=== PATIENT | female | born 1995 | race Caucasian/White ===

== ENCOUNTER 2016-05-17 07:52 | Emergency (ER) | payer MEDICAID ==
[2016-05-17] MEDS ORDERED: ONDANSETRON ODT 4 MG TABLET TL STA (08:16)
[2016-05-17] MEDS ORDERED: KETOROLAC 60 MG/2 ML VIAL IM STA (08:16)
[2016-05-17] MEDS ORDERED: ONDANSETRON ODT 4 MG TABLET ONE (08:20)
[2016-05-17] MEDS ORDERED: KETOROLAC 60 MG/2 ML VIAL ONE (08:20)
[2016-05-17] MEDS ORDERED: LISINOPRIL 5 MG TABLET PO STA (09:20)
[2016-05-17] MEDS ORDERED: BUTALB/ACETAM/CAFF 50/325/40MG TABLET PO STA (09:21)
[2016-05-17] MEDS ORDERED: LISINOPRIL 5 MG TABLET ONE (09:22)
== END 2016-05-17 10:04 | disposition home or self-care (01) ==
DX: G43.909 Migraine, unspecified, not intractable, without status migrainosus (principal); R51 Headache; G89.29 Other chronic pain; I10 Essential (primary) hypertension
CPT/HCPCS: 96372; 99283; A9270; Q0162

== ENCOUNTER 2016-05-21 10:18 | Outpatient (CLI) | payer MEDICAID | END 2016-05-21 10:19 | disposition home or self-care (01) | DX: E28.2 Polycystic ovarian syndrome (principal); E88.81 Metabolic syndrome and other insulin resistance; I10 Essential (primary) hypertension; G43.909 Migraine, unspecified, not intractable, without status migrainosus ==

== ENCOUNTER 2016-05-29 11:43 | Outpatient (CLI) | payer MEDICAID | END 2016-05-29 11:44 | disposition home or self-care (01) | DX: R94.5 Abnormal results of liver function studies (principal) ==

== ENCOUNTER 2016-06-04 11:23 | Outpatient (CLI) | payer OTHER, MEDICAID | END 2016-06-04 11:24 | disposition home or self-care (01) | DX: K76.0 Fatty (change of) liver, not elsewhere classified (principal) ==

== ENCOUNTER 2016-07-03 12:35 | Outpatient (CLI) | payer OTHER, MEDICAID | END 2016-07-03 12:36 | disposition home or self-care (01) | DX: Z71.3 Dietary counseling and surveillance (principal); E88.81 Metabolic syndrome and other insulin resistance; R94.5 Abnormal results of liver function studies; E28.2 Polycystic ovarian syndrome; K76.0 Fatty (change of) liver, not elsewhere classified; Z68.35 Body mass index [BMI] 35.0-35.9, adult ==

== ENCOUNTER 2016-08-09 10:10 | Outpatient (CLI) | payer OTHER, MEDICAID | END 2016-08-09 23:59 | disposition home or self-care (01) | DX: I10 Essential (primary) hypertension (principal); M13.0 Polyarthritis, unspecified; E78.1 Pure hyperglyceridemia ==

== ENCOUNTER 2016-09-22 14:59 | Emergency (ER) | payer OTHER, MEDICAID ==
[2016-09-22 15:23] LABS: BASOPHILS # (AUTO) 0.1 10^3/uL (0.0-0.1); BASOPHILS % (AUTO) 0.5 %; EOSINOPHILS # (AUTO) 0.2 10^3/uL (0.0-0.7); EOSINOPHILS % (AUTO) 1.8 %; HCT - HEMATOCRIT 45.7 % (37.0-47.0); HGB - HEMOGLOBIN 15.6 g/dL (12.0-16.0); LYMPHOCYTES # (AUTO) 3.8 10^3/uL (1.5-3.5); LYMPHOCYTES % (AUTO) 38.4 %; MEAN CORPUSCULAR HGB CONC 34.1 g/dL (32.0-36.0); MEAN CORPUSCULAR VOLUME 90.9 fL (81.0-99.0); MEAN PLATELET VOLUME 7.9 fL (7.9-10.8); MONOCYTES # (AUTO) 0.6 10^3/uL (0.0-1.0); MONOCYTES % (AUTO) 5.8 %; NEUTROPHILS # (AUTO) 5.2 10^3/uL (1.5-6.6); NEUTROPHILS % (AUTO) 53.5 %; RED BLOOD COUNT 5.03 10^6/uL (4.20-5.40); RED CELL DISTRIBUTION WIDTH 12.4 % (12.0-15.0); UNCORRECTED WHITE BLOOD COUNT 9.8 x10^3/uL; WHITE BLOOD COUNT 9.8 x10^3/uL (4.8-10.8)
[2016-09-22 15:36] LABS: ALBUMIN/GLOBULIN RATIO 1.3 (1.0-2.2); BILIRUBIN,TOTAL 0.7 mg/dL (0.2-1.0); CALCIUM 9.6 mg/dL (8.5-10.3); CREATININE 0.8 mg/dL (0.4-1.0); POTASSIUM 4.2 mmol/L (3.5-5.0); TOTAL PROTEIN 7.5 g/dL (6.7-8.2)
[2016-09-22 15:40] LABS: PT - PROTHROMBIN TIME 11.2 secs (9.9-12.6)
[2016-09-22 15:48] LABS: PARTIAL THROMBOPLASTIN TIME 25.4 secs (24.9-33.3)
[2016-09-22] MEDS ORDERED: HYOSCYAMINE SL 0.125 MG TABLET SL STA (15:53)
--- NOTE | 2016-09-22 15:57 | ED Physician Documentation ---
PD HPI GI BLEED - Stated complaint Stated Complaint: FEMALE - Chief complaint Chief Complaint: Abd Pain - History obtained from History obtained from: Patient - History of Present Illness Timing - onset: Other (several months) Timing - duration: Months Timing - details: Waxing and waning Pain level max: 6 Pain level now: 4 Associated symptoms: Diarrhea. No: Vomiting, Coffee ground emesis, Hematemesis Contributing factors: No: Sick contact, Bad food, Travel, Recent antibiotics, Alcohol use, Aspirin use, NSAID use, Stress, Anticoagulated, Diabetes Improved by: Other (nothing) Worsened by: Other (nothing) - Additional information Additional information: Patient is a 21-year-old female presents to the emergency department with intermittent blood in the stool for the past several months. This comes and goes. Generally associated with diarrhea and abdominal cramping. No fevers. Has not seen her doctor for this. Sometimes the blood is bright, sometimes it is dark Review of Systems Constitutional: denies: Fever, Chills Respiratory: denies: Cough, Wheezing GI: denies: Nausea, Vomiting : denies: Dysuria, Now EGA Musculoskeletal: denies: Neck pain, Back pain Neurologic: denies: Focal weakness, Numbness, Headache PD PAST MEDICAL HISTORY - Past Medical History Past Medical History: Yes Cardiovascular: Hypertension Neuro: Headache/migraine Psych: Anxiety Other Past Medical History: fatty liver syndrome - Past Surgical History Past Surgical History: Yes HEENT: Tonsil/Adenoidectomy - Present Medications Home Medications: Ambulatory Orders Medication Instructions Recorded Confirmed Etonogestrel/Ethinyl Estradiol 1 each VG TITR 03/23/16 09/22/16 [Nuvaring Vaginal Ring] Biotin 1 tab DAILY 09/22/16 09/22/16 Clonazepam 1 mg BID 09/22/16 09/22/16 Dicyclomine [Bentyl] 10 mg PO QID PRN #30 capsule 09/22/16 Nadolol 20 mg QPM 09/22/16 09/22/16 PARoxetine [Paxil] 40 mg DAILY 09/22/16 09/22/16 - Allergies Allergies/Adverse Reactions: Allergies Allergy/AdvReac Type Severity Reaction Status Date / Time No Known Drug Allergies Allergy Verified 03/24/16 10:32 - Social History Does the pt smoke?: No Smoking Status: Never smoker Does the pt drink ETOH?: No Does the pt have substance abuse?: No - Immunizations Immunizations are current?: Yes PD ED PE NORMAL - Vitals Vital signs reviewed: Yes - General General: Alert and oriented X 3, No acute distress - HEENT HEENT: Moist mucous membranes - Neck Neck: Supple, no meningeal sign - Cardiac Cardiac: RRR, Strong equal pulses - Respiratory Respiratory: No respiratory distress, Clear bilaterally - Abdomen Abdomen: Soft, Other (Mild diffuse tenderness to palpation without peritoneal signs.) - Rectal Rectal: Other (normal rectal exam. hemoccult neg. QC passed. RN Ramona Jeffrey senior counsel) - Back Back: No CVA TTP, No spinal TTP - Derm Derm: Warm and dry, No rash - Extremities Extremities: No edema - Neuro Neuro: Alert and oriented X 3 - Psych Psych: Normal mood, Normal affect Results - Vitals Vitals: Vital Signs - 24 hr 09/22/16 09/22/16 15:02 16:48 Temperature 36.7 C 36.9 C Heart Rate 101 H 85 Respiratory 18 16 Rate Blood Pressure 150/103 H 139/56 H O2 Saturation 98 97 Oxygen O2 Source Room air - Labs Labs: Laboratory Tests 09/22/16 09/22/16 09/22/16 15:17 15:17 15:17 WBC 9.8 RBC 5.03 Hgb 15.6 Hct 45.7 MCV 90.9 MCH 31.0 MCHC 34.1 RDW 12.4 Plt Count 281 MPV 7.9 Neut # 5.2 Lymph # 3.8 H [place] # 0.6 Eos # 0.2 Baso # 0.1 Absolute Nucleated RBC 0.00 Nucleated RBCs 0.0 PT 11.2 INR 1.0 APTT 25.4 Sodium 140 Potassium 4.2 Chloride 107 Carbon Dioxide 25 Anion Gap 8.0 BUN 10 Creatinine 0.8 Estimated GFR (MDRD) 91 Glucose 85 Calcium 9.6 Total Bilirubin 0.7 AST 33 ALT 50 Alkaline Phosphatase 66 Total Protein 7.5 Albumin 4.2 Globulin 3.3 Albumin/Globulin Ratio 1.3 Lipase 30 Urine Color Urine Clarity Urine pH Ur Specific [place] Urine Protein Urine Glucose (UA) Urine Ketones Urine Occult Blood Urine Nitrite Urine Bilirubin Urine Urobilinogen Ur Leukocyte Esterase Ur Microscopic Review Urine Culture Comments Urine HCG, Qual 09/22/16 16:06 WBC RBC Hgb Hct MCV MCH MCHC RDW Plt Count MPV Neut # Lymph # [place] # Eos # Baso # Absolute Nucleated RBC Nucleated RBCs PT INR APTT Sodium Potassium Chloride Carbon Dioxide Anion Gap BUN Creatinine Estimated GFR (MDRD) Glucose Calcium Total Bilirubin AST ALT Alkaline Phosphatase Total Protein Albumin Globulin Albumin/Globulin Ratio Lipase Urine Color YELLOW Urine Clarity CLEAR Urine pH 6.0 Ur Specific [place] 1.025 Urine Protein NEGATIVE Urine Glucose (UA) NEGATIVE Urine Ketones TRACE Urine Occult Blood NEGATIVE Urine Nitrite NEGATIVE Urine Bilirubin NEGATIVE Urine Urobilinogen 0.2 (NORMAL) Ur Leukocyte Esterase NEGATIVE Ur Microscopic Review NOT INDICATED Urine Culture Comments NOT INDICATED Urine HCG, Qual NEGATIVE PD MEDICAL DECISION MAKING - ED course Complexity details: reviewed results, re-evaluated patient, considered differential, d/w patient ED course: Patient is a 21-year-old female who presents to the emergency department with several months of intermittent diarrhea, occasional blood in the stool. Pain improved with Levsin here. Will trial on Bentyl for home. Sounds as if she has inflammatory bowel disease versus irritable bowel syndrome. Recommend that she follow-up with her doctor for further evaluation and care. No active bleeding here. No anemia. Abdomen is soft, nontender nondistended on serial exam. No recent antibiotics. Only has 1-2 bowel movements per day. Patient counseled regarding signs and symptoms for which I believe and urgent re- evaluation would be necessary. Patient with good understanding of and agreement to plan and is comfortable going home at this time This document was made in part using voice recognition software. While efforts are made to proofread this document, sound alike and grammatical errors may occur. Departure - Departure Disposition: 01 Home, Self Care Clinical Impression: GI bleed Qualifiers: GI bleed type/associated pathology: unspecified gastrointestinal hemorrhage type Qualified Code(s): K92.2 - Gastrointestinal hemorrhage, unspecified Condition: Good Instructions: ED Hematochezia Stable Follow-Up: Anthony Emerson MD [Primary Care Provider] - Within 1 week Prescriptions: Dicyclomine [Bentyl] 10 mg PO QID PRN #30 capsule PRN Reason: Abdominal Pain Comments: You need to follow-up with Dr. Emerson for further evaluation and care. Your laboratory tests are normal today. You may be suffering from inflammatory bowel disease, such as ulcerative colitis or Crohn's. You may also be suffering from irritable bowel syndrome or another disorder causing the bleeding for the last several months. Return if you worsen. Your blood pressure was elevated today on check in to the emergency department. This does not mean that you have hypertension, it is a common phenomenon to check into the emergency department and have elevated blood pressure. I recommend that you see your primary care physician within the week to have it rechecked when you're feeling better. Discharge Date/Time: 09/22/16 16:51
[2016-09-22 16:18] LABS: BILIRUBIN,URINE NEGATIVE (NEGATIVE)
[2016-09-22 16:31] LABS: UA CHARGE (STRIP ONLY) YES; UR CULTURE IF IND NOT INDICATED
[2016-09-22 16:34] LABS: HCG UR QUAL NEGATIVE
[2016-09-22 16:49] VITALS: BP 139/56
== END 2016-09-22 16:51 | disposition home or self-care (01) ==
LOC: ED 14:59
DX: K92.1 Melena (principal); R19.7 Diarrhea, unspecified; I10 Essential (primary) hypertension
CPT/HCPCS: 36415; 80053; 81003; 81025; 83690; 85025; 85610; 85730; 99283; 99284; A9270; 81001; 87086

== ENCOUNTER 2016-11-17 16:32 | Emergency (ER) | payer OTHER ==
--- NOTE | 2016-11-17 16:57 | ED Physician Documentation ---
PD HPI HEADACHE - Stated complaint Stated Complaint: RODRIGUEZ - Chief complaint Chief Complaint: Neuro - History obtained from History obtained from: Patient - History of Present Illness Timing - onset: How many days ago (5) Timing - onset during: Other (she struck her forehead when bending down, struck on cabinet. No LOC. Has swelling forehead. Some headache at the time. Developed frontal headache/diffusely then a few days ago, with nausea and vomiting, some light snesitivity. Seen at [facility] with normal CT head. Given few pain meds and zofran. Dx with concussion.) Timing - duration: Days (5) Timing - details: Abrupt onset, Still present, Waxing and waning (worse the past 2 days) Worst headache ever?: No: Worst headache ever? Location: Front Quality: Throbbing, Aching Associated symptoms: Nausea, Vomiting. No: Fever, Stiff neck, Weakness, Numbness, Vision changes Improved by: Meds (pain meds from yesterday helped.). No: Rest Worsened by: Light Contributing factors: Trauma (struck forehead 5 days ago). No: Anticoagulated, Recent illness Similar symptoms before: Diagnosis (has had migraiines infrequently in the past , has imitrex at home.) Recently seen: Emergency Dept (yesterday) Review of Systems Constitutional: denies: Fever, Chills Eyes: denies: Loss of vision Nose: denies: Rhinorrhea / runny nose, Congestion Throat: denies: Sore throat Respiratory: denies: Cough GI: reports: Nausea, Vomiting. denies: Abdominal Pain, Diarrhea : denies: Dysuria, Frequency Skin: denies: Rash, Abrasion (s), Laceration (s) Musculoskeletal: denies: Neck pain, Back pain Neurologic: reports: Generalized weakness. denies: Focal weakness, Numbness 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: Headache/migraine Psych: Anxiety Other Past Medical History: PCOS, fatty liver disease - Past Surgical History Past Surgical History: Yes HEENT: Tonsil/Adenoidectomy - Present Medications Home Medications: Ambulatory Orders Medication Instructions Recorded Confirmed Etonogestrel/Ethinyl Estradiol 1 each VG TITR 03/23/16 11/17/16 [Nuvaring Vaginal Ring] Biotin 1 tab PO DAILY 09/22/16 11/17/16 Clonazepam 1 mg PO BID 09/22/16 11/17/16 Dicyclomine [Bentyl] 10 mg PO QID PRN #30 capsule 09/22/16 11/17/16 Nadolol 20 mg PO QPM 09/22/16 11/17/16 PARoxetine [Paxil] 40 mg PO DAILY 09/22/16 11/17/16 Dexamethasone [Decadron] 4 mg PO DAILY #5 tablet 11/17/16 Ondansetron Odt [Zofran] 4 mg TL Q6H PRN #15 tablet 11/17/16 Oxycodone HCl/Acetaminophen 1 each PO Q6H PRN #15 tablet 11/17/16 [Percocet 5-325 mg Tablet] oxyCODONE [Roxicodone] 5 mg PO PRN 11/17/16 - Allergies Allergies/Adverse Reactions: Allergies Allergy/AdvReac Type Severity Reaction Status Date / Time No Known Drug Allergies Allergy Verified 03/24/16 10:32 - Social History Does the pt smoke?: No Smoking Status: Never smoker Does the pt drink ETOH?: No Does the pt have substance abuse?: No - Immunizations Immunizations are current?: Yes PD ED PE NORMAL - Vitals Vital signs reviewed: Yes - General General: Alert and oriented X 3, Well developed/nourished, Other (appears uncomfortable.) - HEENT HEENT: PERRL (light sensitive), Ears normal, Pharynx benign, Other (forehead contusion with mild swelling. ) - Neck Neck: Supple, no meningeal sign, No adenopathy - Cardiac Cardiac: RRR, No murmur - Respiratory Respiratory: Clear bilaterally - Abdomen Abdomen: Soft, Non tender - Derm Derm: Normal color, Warm and dry - Extremities Extremities: No tenderness to palpate, Normal ROM s pain - Neuro Neuro: Alert and oriented X 3, soa architect 2-12 intact, No motor deficit, No sensory deficit, Normal speech, Other - Psych Psych: Normal mood, Normal affect Results - Vitals Vitals: Vital Signs - 24 hr 11/17/16 11/17/16 16:42 19:48 Temperature 35.2 C L 36.6 C Heart Rate 74 81 Respiratory 16 18 Rate Blood Pressure 138/103 H 136/90 H O2 Saturation 99 100 Oxygen O2 Source Room air - Labs Labs: Laboratory Tests 11/17/16 11/17/16 11/17/16 16:59 17:40 17:40 WBC 12.3 H RBC 4.96 Hgb 15.6 Hct 45.3 MCV 91.3 MCH 31.4 H MCHC 34.4 RDW 12.2 Plt Count 268 MPV 7.6 L Neut # 8.4 H Lymph # 2.9 [place] # 0.7 Eos # 0.2 Baso # 0.1 Absolute Nucleated RBC 0.00 Nucleated RBCs 0.0 ESR 1 Sodium Potassium Chloride Carbon Dioxide Anion Gap BUN Creatinine Estimated GFR (MDRD) Glucose POC Whole Bld Glucose 106 H Calcium Total Bilirubin AST ALT Alkaline Phosphatase Total Protein Albumin Globulin Albumin/Globulin Ratio Lipase 11/17/16 17:40 WBC RBC Hgb Hct MCV MCH MCHC RDW Plt Count MPV Neut # Lymph # [place] # Eos # Baso # Absolute Nucleated RBC Nucleated RBCs ESR Sodium 138 Potassium 4.4 Chloride 105 Carbon Dioxide 25 Anion Gap 8.0 BUN 11 Creatinine 0.7 Estimated GFR (MDRD) 107 Glucose 125 H POC Whole Bld Glucose Calcium 9.4 Total Bilirubin 0.5 AST 48 H ALT 60 Alkaline Phosphatase 59 Total Protein 7.7 Albumin 4.3 Globulin 3.4 Albumin/Globulin Ratio 1.3 Lipase 27 PD MEDICAL DECISION MAKING - ED course Complexity details: considered differential (concussive symptoms vs. injury induced migraine. Given meds here targeted mainly at migraine with some pain med as well. Feels much better. Had CT yesterday at [place] and I did not see need to repeat it. ), d/w patient Departure - Departure Disposition: 01 Home, Self Care Clinical Impression: Forehead contusion Qualifiers: Encounter type: initial encounter Qualified Code(s): S00.83XA - Contusion of other part of head, initial encounter Mild concussion Qualifiers: Encounter type: initial encounter Loss of consciousness presence/duration: without LOC Qualified Code(s): S06.0X0A - Concussion without loss of consciousness, initial encounter Headache Qualifiers: Headache type: unspecified Headache chronicity pattern: acute headache Intractability: not intractable Qualified Code(s): R51 - Headache Nausea & vomiting Qualifiers: Vomiting type: unspecified Vomiting Intractability: non-intractable Qualified Code(s): R11.2 - Nausea with vomiting, unspecified Condition: Stable Record reviewed to determine appropriate education?: Yes Instructions: ED Nausea Vomiting, ED Concussion Follow-Up: Anthony Emerson MD [Primary Care Provider] - Prescriptions: Dexamethasone [Decadron] 4 mg PO DAILY #5 tablet Oxycodone HCl/Acetaminophen [Percocet 5-325 mg Tablet] 1 each PO Q6H PRN #15 tablet PRN Reason: Pain Ondansetron Odt [Zofran] 4 mg TL Q6H PRN #15 tablet PRN Reason: Nausea / Vomiting Comments: Small frequent fluids. Ibuprofen if needed for mild pains. Add Percocet if needed. Ondansetron if needed for nausea. For inflammation I would do dexamethasone daily for 5 more days and this can help for concussion and also for persistent migraine type headache. Recheck if not improved over the next couple of days. Discharge Date/Time: 11/17/16 19:48
[2016-11-17] MEDS ORDERED: SODIUM CHLORIDE 0.9% 1,000 ML IV ONE (17:11)
[2016-11-17] MEDS ORDERED: METOCLOPRAMIDE 10 MG/2 ML VIAL IVP STA (17:11)
[2016-11-17] MEDS ORDERED: KETOROLAC 60 MG/2 ML VIAL IVP STA (17:24)
[2016-11-17] MEDS ORDERED: DEXAMETHASONE 10 MG/ML VIAL IVP STA (17:24)
[2016-11-17] MEDS ORDERED: HYDROmorphone 1 MG/ML SYRINGE IVP STA (17:24)
[2016-11-17] MEDS ORDERED: diphenhydrAMINE INJ 50 MG/ML VIAL IVP STA (17:25)
[2016-11-17 17:47] LABS: BASOPHILS # (AUTO) 0.1 10^3/uL (0.0-0.1); BASOPHILS % (AUTO) 0.6 %; EOSINOPHILS # (AUTO) 0.2 10^3/uL (0.0-0.7); EOSINOPHILS % (AUTO) 1.7 %; HCT - HEMATOCRIT 45.3 % (37.0-47.0); HGB - HEMOGLOBIN 15.6 g/dL (12.0-16.0); LYMPHOCYTES # (AUTO) 2.9 10^3/uL (1.5-3.5); LYMPHOCYTES % (AUTO) 23.6 %; MEAN CORPUSCULAR HEMOGLOBIN 31.4 pg (27.0-31.0); MEAN CORPUSCULAR HGB CONC 34.4 g/dL (32.0-36.0); MEAN CORPUSCULAR VOLUME 91.3 fL (81.0-99.0); MEAN PLATELET VOLUME 7.6 fL (7.9-10.8); MONOCYTES # (AUTO) 0.7 10^3/uL (0.0-1.0); MONOCYTES % (AUTO) 5.5 %; NEUTROPHILS # (AUTO) 8.4 10^3/uL (1.5-6.6); NEUTROPHILS % (AUTO) 68.6 %; RED BLOOD COUNT 4.96 10^6/uL (4.20-5.40); RED CELL DISTRIBUTION WIDTH 12.2 % (12.0-15.0); UNCORRECTED WHITE BLOOD COUNT 12.3 x10^3/uL; WHITE BLOOD COUNT 12.3 x10^3/uL (4.8-10.8)
[2016-11-17] MEDS ORDERED: METOCLOPRAMIDE 10 MG/2 ML VIAL ONE (17:48)
[2016-11-17] MEDS ORDERED: KETOROLAC 30 MG/ML VIAL ONE (17:48)
[2016-11-17] MEDS ORDERED: HYDROmorphone 1 MG/ML SYRINGE ONE (17:48)
[2016-11-17] MEDS ORDERED: DEXAMETHASONE 10 MG/ML VIAL ONE (17:49)
[2016-11-17 18:00] LABS: ALBUMIN/GLOBULIN RATIO 1.3 (1.0-2.2); BILIRUBIN,TOTAL 0.5 mg/dL (0.2-1.0); CALCIUM 9.4 mg/dL (8.5-10.3); CREATININE 0.7 mg/dL (0.4-1.0); POTASSIUM 4.4 mmol/L (3.5-5.0); TOTAL PROTEIN 7.7 g/dL (6.7-8.2)
[2016-11-17] MEDS ORDERED: diphenhydrAMINE INJ 50 MG/ML VIAL ONE (18:07)
[2016-11-17] MEDS ORDERED: ONDANSETRON ODT 4 MG Prepack 2 TL PRN (19:06)
[2016-11-17] MEDS ORDERED: oxyCODONE/ACET 5/325 Prepack 4 PO STA (19:06)
[2016-11-17] MEDS ORDERED: oxyCODONE/ACET 5/325 Prepack 4 PO ONE (19:16)
[2016-11-17] MEDS ORDERED: ONDANSETRON ODT 4 MG Prepack 2 TL ONE (19:17)
[2016-11-17 19:49] VITALS: BP 136/90
== END 2016-11-17 19:48 | disposition home or self-care (01) ==
LOC: ED 16:32
DX: S00.83XA Contusion of other part of head, initial encounter (principal); S06.0X0A Concussion without loss of consciousness, initial encounter; W22.09XA Striking against other stationary object, initial encounter; R51 Headache; R11.2 Nausea with vomiting, unspecified; I10 Essential (primary) hypertension
CPT/HCPCS: 36415; 80053; 83690; 85025; 85651; 96374; 96375; 99283; 99284; J1170

== ENCOUNTER 2016-11-23 22:19 | Emergency (ER) | payer OTHER ==
[2016-11-24] MEDS ORDERED: SODIUM CHLORIDE 0.9% 1,000 ML IV STA (00:35)
[2016-11-24] MEDS ORDERED: PROMETHAZINE INJ 25 MG in SODIUM CHLORIDE 0.9% 50 ML IV STA (00:35)
[2016-11-24] MEDS ORDERED: PROMETHAZINE 25 MG/1 ML VIAL ONE (00:51)
[2016-11-24 00:52] LABS: BASOPHILS # (AUTO) 0.1 10^3/uL (0.0-0.1); BASOPHILS % (AUTO) 0.5 %; EOSINOPHILS # (AUTO) 0.1 10^3/uL (0.0-0.7); EOSINOPHILS % (AUTO) 0.8 %; HCT - HEMATOCRIT 43.3 % (37.0-47.0); LYMPHOCYTES # (AUTO) 7.7 10^3/uL (1.5-3.5); LYMPHOCYTES % (AUTO) 44.9 %; MEAN CORPUSCULAR HEMOGLOBIN 31.3 pg (27.0-31.0); MEAN CORPUSCULAR HGB CONC 34.7 g/dL (32.0-36.0); MEAN CORPUSCULAR VOLUME 90.3 fL (81.0-99.0); MEAN PLATELET VOLUME 7.7 fL (7.9-10.8); MONOCYTES # (AUTO) 1.5 10^3/uL (0.0-1.0); MONOCYTES % (AUTO) 8.6 %; NEUTROPHILS # (AUTO) 7.8 10^3/uL (1.5-6.6); NEUTROPHILS % (AUTO) 45.2 %; NUCLEATED RED BLOOD CELLS AUTO 0.1 /100WBC; UNCORRECTED WHITE BLOOD COUNT 17.2 x10^3/uL; WHITE BLOOD COUNT 17.2 x10^3/uL (4.8-10.8)
[2016-11-24 01:06] LABS: ALBUMIN/GLOBULIN RATIO 1.3 (1.0-2.2); BILIRUBIN,TOTAL 0.4 mg/dL (0.2-1.0); CALCIUM 9.1 mg/dL (8.5-10.3); CREATININE 0.6 mg/dL (0.4-1.0); POTASSIUM 3.7 mmol/L (3.5-5.0); TOTAL PROTEIN 7.2 g/dL (6.7-8.2)
[2016-11-24 01:22] LABS: PLATELET ESTIMATE, MANUAL NORMAL (130-450,000) (NORMAL); PLATELET MORPHOLOGY NORMAL APPEARANCE (NORMAL)
--- NOTE | 2016-11-24 02:26 | Ultrasound Preliminary Report ---
Exam: US Abdomen Limited IMPRESSION: 1. Gallbladder appears normal. 2. Fatty liver. [facility] SITE ID: [id number]
--- NOTE | 2016-11-24 02:31 | Ultrasound Report ---
EXAM: ABDOMEN ULTRASOUND LIMITED, RUQ EXAM DATE: 11/24/2016 02:06 AM. CLINICAL HISTORY: Right upper quadrant abdominal pain. COMPARISON: 06/04/2016. TECHNIQUE: Real-time scanning was performed with static images obtained. FINDINGS: Liver: Echogenic without gross focal abnormality seen. Main portal vein flow: Hepatopetal. Gallbladder: Normal. No stones, wall thickening, or sonographic Orozco's sign. Biliary System: CBD measures 4 mm. No intrahepatic or extrahepatic ductal dilatation. Other: No right hydronephrosis. IMPRESSION: 1. Gallbladder appears normal. 2. Fatty liver. [facility] Referring Provider Line: [phone] SITE ID: [id number]
[2016-11-24 02:47] VITALS: BP 147/89
--- NOTE | 2016-11-24 06:20 | ED Physician Documentation ---
PD HPI NVD - Stated complaint Stated Complaint: N/D/V - Chief complaint Chief Complaint: Abd Pain - History obtained from History obtained from: Patient - History of Present Illness Timing - onset: How many weeks ago (1) Timing - details: Gradual onset, Waxing and waning Associated symptoms: Abdominal pain. No: Fever Improved by: Other (no ameliorating factors) Worsened by: Eating Recently seen: Clinic, Emergency Dept - Additonal information Additional information: evaluated in this ED 11/17/16 for head injury; patient had been evaluated at [facility] ED the day before for RODRIGUEZ due to head injury, had CT head at [place] that patient says was normal. She then presented to this ED 11/17 for ongoing headache, nausea. She then followed up with PMD yesterday, had blood tests drawn and was called after the office had closed, was advised her WBC was elevated as were her liver tests. Patient says she was instructed to call the office in the morning to discuss follow-up, but to go to ED if worse in any way. She presents due to RUQ discomfort and ongoing nausea, vomiting. She denies RODRIGUEZ at this time. Review of Systems Constitutional: denies: Fever, Chills, Sweats Cardiac: reports: Reviewed and negative Respiratory: reports: Reviewed and negative GI: reports: Abdominal Pain, Nausea, Vomiting : denies: Dysuria, Frequency Musculoskeletal: denies: Neck pain, Back pain Neurologic: reports: Head injury. denies: Generalized weakness, Focal weakness , Numbness 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: Headache/migraine Psych: Anxiety - Past Surgical History Past Surgical History: Yes HEENT: Tonsil/Adenoidectomy - Present Medications Home Medications: Ambulatory Orders Medication Instructions Recorded Confirmed Etonogestrel/Ethinyl Estradiol 1 each VG TITR 03/23/16 11/17/16 [Nuvaring Vaginal Ring] Biotin 1 tab PO DAILY 09/22/16 11/17/16 Clonazepam 1 mg PO BID 09/22/16 11/17/16 Dicyclomine [Bentyl] 10 mg PO QID PRN #30 capsule 09/22/16 11/17/16 Nadolol 20 mg PO QPM 09/22/16 11/17/16 PARoxetine [Paxil] 40 mg PO DAILY 09/22/16 11/17/16 Dexamethasone [Decadron] 4 mg PO DAILY #5 tablet 11/17/16 Ondansetron Odt [Zofran] 4 mg TL Q6H PRN #15 tablet 11/17/16 Oxycodone HCl/Acetaminophen 1 each PO Q6H PRN #15 tablet 11/17/16 [Percocet 5-325 mg Tablet] oxyCODONE [Roxicodone] 5 mg PO PRN 11/17/16 Promethazine [Phenergan] 25 - 50 mg PO Q6H PRN #10 tab 11/24/16 - Allergies Allergies/Adverse Reactions: Allergies Allergy/AdvReac Type Severity Reaction Status Date / Time No Known Drug Allergies Allergy Verified 03/24/16 10:32 - Social History Does the pt smoke?: No Smoking Status: Never smoker Does the pt drink ETOH?: No Does the pt have substance abuse?: No - Immunizations Immunizations are current?: Yes PD ED PE NORMAL - Vitals Vital signs reviewed: Yes - General General: Alert and oriented X 3, No acute distress, Well developed/nourished - HEENT HEENT: Moist mucous membranes - Neck Neck: Supple, no meningeal sign - Cardiac Cardiac: RRR, No murmur - Respiratory Respiratory: No respiratory distress, Clear bilaterally - Abdomen Abdomen: Soft, Non distended, Other (mild RUQ and epigastric tenderness to palpation without rebound or guarding) - Back Back: No CVA TTP - Derm Derm: Normal color, Warm and dry Results - Vitals Vitals: Vital Signs - 24 hr 11/23/16 11/24/16 22:39 02:45 Temperature 36.2 C L Heart Rate 102 H 73 Respiratory 18 16 Rate Blood Pressure 142/92 H 147/89 H O2 Saturation 98 100 Oxygen O2 Source Room air - Labs Labs: Laboratory Tests 11/24/16 11/24/16 00:44 00:44 WBC 17.2 H RBC 4.80 Hgb 15.0 Hct 43.3 MCV 90.3 MCH 31.3 H MCHC 34.7 RDW 12.0 Plt Count 314 MPV 7.7 L Neut # 7.8 H Lymph # 7.7 H [place] # 1.5 H Eos # 0.1 Baso # 0.1 Absolute Nucleated RBC 0.01 Nucleated RBCs 0.1 Manual Slide Review Indicated Platelet Estimate NORMAL (130-450,000) Platelet Morphology NORMAL APPEARANCE RBC Morph Micro Appear NORMAL APPEARANCE Sodium 136 Potassium 3.7 Chloride 103 Carbon Dioxide 25 Anion Gap 8.0 BUN 15 Creatinine 0.6 Estimated GFR (MDRD) 127 Glucose 105 H Calcium 9.1 Total Bilirubin 0.4 AST 42 ALT 123 H Alkaline Phosphatase 54 Total Protein 7.2 Albumin 4.0 Globulin 3.2 Albumin/Globulin Ratio 1.3 Lipase 34 - Rads (name of study) RUQ US Radiology: Prelim report reviewed, See rad report PD MEDICAL DECISION MAKING - ED course Complexity details: reviewed old records, reviewed results, re-evaluated patient , considered differential, d/w patient Departure - Departure Disposition: 01 Home, Self Care Clinical Impression: Abdominal pain Qualifiers: Abdominal location: upper abdomen, unspecified Qualified Code(s): R10.10 - Upper abdominal pain, unspecified Condition: Good Instructions: ED Abdominal Pain Unkn Cause Follow-Up: Anthony Emerson MD [Primary Care Provider] - (Call in the morning to arrange for next available appointment) Prescriptions: Promethazine [Phenergan] 25 - 50 mg PO Q6H PRN #10 tab PRN Reason: Nausea / Vomiting Discharge Date/Time: 11/24/16 02:48
== END 2016-11-24 02:48 | disposition home or self-care (01) ==
LOC: ED 22:19
DX: R10.10 Upper abdominal pain, unspecified (principal); R11.2 Nausea with vomiting, unspecified; R19.7 Diarrhea, unspecified; R51 Headache; I10 Essential (primary) hypertension
CPT/HCPCS: 36415; 76705; 80053; 83690; 85025; 96365; 99283; 99284; J7040

== ENCOUNTER 2016-11-26 17:20 | Outpatient (CLI) | payer OTHER ==
[2016-11-26] MEDS ORDERED: IOPAMIDOL-300 50 ML VIAL PO ONE (17:42)
--- NOTE | 2016-11-26 17:56 | CT Preliminary Report ---
Exam: CT Head W/O IMPRESSION: Normal head CT. [facility] SITE ID: [id number]
--- NOTE | 2016-11-26 17:58 | CT Report ---
EXAM: CT HEAD EXAM DATE: 11/26/2016 05:42 PM. CLINICAL HISTORY: CONCUSSION W/O LOSS OF CONSCIOUSNESS/ABD PAIN. COMPARISON: None. TECHNIQUE: Multiaxial CT images were obtained from the foramen magnum to the vertex. IV contrast: Non e. Reformats: Coronal. In accordance with CT protocol optimization, one or more of the following dose reduction techniques w ere utilized for this exam: automated exposure control, adjustment of mA and/or KV based on patient s ize, or use of iterative reconstructive technique. FINDINGS: Parenchyma: No intraparenchymal hemorrhage. No evidence of mass, midline shift, or CT findings of inf arction. Ashby-white differentiation is distinct. Extraaxial Spaces: Normal for age. No subdural or epidural collections. Ventricles: Normal in size and position. Sinuses: Imaged paranasal sinuses, orbits, and mastoids show no significant abnormality. Bones: Unremarkable. Other: None. IMPRESSION: Normal head CT. [facility] Referring Provider Line: [phone] SITE ID: [id number]
--- NOTE | 2016-11-26 19:09 | CT Preliminary Report ---
Exam: CT Abdomen/Pelvis W/ IMPRESSION: Fatty liver. Otherwise unremarkable. No acute disease. [facility] SITE ID: [id number]
--- NOTE | 2016-11-26 19:11 | CT Report ---
EXAM: CT ABDOMEN AND PELVIS EXAM DATE: 11/26/2016 06:48 PM. CLINICAL HISTORY: CONCUSSION W/O LOSS OF CONSCIOUSNESS/ABD PAIN. COMPARISONS: None. TECHNIQUE: Routine helical CT imaging was performed through the abdomen and pelvis. IV contrast: 100 cc Isovue-300. Enteric contrast: Yes. Reconstructions: Coronal and sagittal. In accordance with CT protocol optimization, one or more of the following dose reduction techniques w ere utilized for this exam: automated exposure control, adjustment of mA and/or KV based on patient s ize, or use of iterative reconstructive technique. FINDINGS: Lung Bases: Unremarkable. Liver: Hypoattenuated liver parenchyma. No mass. Gallbladder/Bile Ducts: Unremarkable. Spleen: Normal. Small accessory spleen. Pancreas: Normal. Adrenal Glands: Normal. Kidneys: Normal. No masses or hydronephrosis. Peritoneal Cavity/Bowel: Normal. No free fluid, free air or adenopathy. No masses or acute inflammato ry process. The appendix is well visualized and normal. Pelvic Organs: Normal. The bladder and visualized pelvic organs are within normal limits. Vasculature: No aneurysms or other significant abnormality. Bones: No significant abnormality. Other: None. IMPRESSION: Fatty liver. Otherwise unremarkable. No acute disease. [facility] Referring Provider Line: [phone] SITE ID: [id number]
== END 2016-11-26 17:21 | disposition home or self-care (01) ==
LOC: DI 17:20
PROVIDERS: ATTEND Physician Assistant Medical
DX: R10.9 Unspecified abdominal pain (principal); K76.0 Fatty (change of) liver, not elsewhere classified; S06.0X0D Concussion without loss of consciousness, subsequent encounter
CPT/HCPCS: 70450; 74177; Q9967

== ENCOUNTER 2016-11-26 17:57 | Emergency (ER) | payer OTHER ==
[2016-11-26] MEDS ORDERED: LORazepam 2 MG/ML SYRINGE IVP STA (18:12)
--- NOTE | 2016-11-26 18:14 | ED Physician Documentation ---
History of Present Illness - Stated complaint Stated Complaint: CHEST/ABD PX - Chief complaint Chief Complaint: Allergic Rx - History obtained from History obtained from: Patient - History of Present Illness Timing: Other (21-year-old with history of PCO S, nonalcoholic fatty liver. Recent head injury with multiple evaluations for same. Seen last night for abdominal pain, ultrasound negative except for fatty liver. It sounds like she saw her physician in the interim who ordered another CT of the head which was done just prior to arrival and was negative and she was sitting in the lobby drinking oral contrast and was also almost done when she developed central sharp chest pain that is nonradiating and she is very anxious with it. On my initial evaluation she is crying and saying my dad of a heart attack. He did of coronary disease at the age of 56. No premature onset coronary disease in the family.) Review of Systems Constitutional: denies: Fever, Chills Nose: denies: Rhinorrhea / runny nose, Congestion Cardiac: reports: Chest pain / pressure. denies: Palpitations, Pedal edema, Calf pain Respiratory: denies: Dyspnea 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: Headache/migraine Psych: Anxiety - Past Surgical History Past Surgical History: Yes HEENT: Tonsil/Adenoidectomy - Present Medications Home Medications: Ambulatory Orders Medication Instructions Recorded Confirmed Etonogestrel/Ethinyl Estradiol 1 each VG TITR 03/23/16 11/17/16 [Nuvaring Vaginal Ring] Biotin 1 tab PO DAILY 09/22/16 11/17/16 Clonazepam 1 mg PO BID 09/22/16 11/17/16 Dicyclomine [Bentyl] 10 mg PO QID PRN #30 capsule 09/22/16 11/17/16 Nadolol 20 mg PO QPM 09/22/16 11/17/16 PARoxetine [Paxil] 40 mg PO DAILY 09/22/16 11/17/16 Dexamethasone [Decadron] 4 mg PO DAILY #5 tablet 11/17/16 Ondansetron Odt [Zofran] 4 mg TL Q6H PRN #15 tablet 11/17/16 Oxycodone HCl/Acetaminophen 1 each PO Q6H PRN #15 tablet 11/17/16 [Percocet 5-325 mg Tablet] oxyCODONE [Roxicodone] 5 mg PO PRN 11/17/16 Promethazine [Phenergan] 25 - 50 mg PO Q6H PRN #10 tab 11/24/16 - Allergies Allergies/Adverse Reactions: Allergies Allergy/AdvReac Type Severity Reaction Status Date / Time No Known Drug Allergies Allergy Verified 03/24/16 10:32 - Social History Does the pt smoke?: No Smoking Status: Never smoker Does the pt drink ETOH?: No Does the pt have substance abuse?: No - Immunizations Immunizations are current?: Yes PD ED PE NORMAL - Vitals Vital signs reviewed: Yes - General General: Alert and oriented X 3, Other (Tearful, hyperventilating, very anxious) - HEENT HEENT: Pharynx benign (Status post tonsillectomy, no angioedema) - Neck Neck: Supple, no meningeal sign, No bony TTP - Cardiac Cardiac: RRR, No murmur - Respiratory Respiratory: Other (Hyperventilating, clear lungs) - Abdomen Abdomen: Soft, Non tender - Derm Derm: No rash - Extremities Extremities: No edema, No calf tenderness / cord - Neuro Neuro: Alert and oriented X 3, Normal speech Results - Vitals Vitals: Vital Signs - 24 hr 11/26/16 18:04 Heart Rate 94 Respiratory 30 H Rate Blood Pressure 179/138 H O2 Saturation 94 Oxygen O2 Source Room air - EKG (time done) 1807 Rate: Rate (enter#) (83) Rhythm: NSR [place]: Normal Intervals: Normal [place] QRS: Normal Ischemia: Normal ST segments Computer interpretation: Agree with computer - Labs Labs: Laboratory Tests 11/26/16 11/26/16 11/26/16 18:30 19:06 19:06 WBC 16.1 H RBC 4.74 Hgb 14.8 Hct 42.9 MCV 90.4 MCH 31.1 H MCHC 34.4 RDW 12.1 Plt Count 287 MPV 7.8 L Neut # 10.2 H Lymph # 4.2 H [place] # 1.4 H Eos # 0.2 Baso # 0.1 Absolute Nucleated RBC 0.01 Nucleated RBCs 0.0 Sodium 133 L Potassium 3.5 Chloride 100 L Carbon Dioxide 22 Anion Gap 11.0 BUN 13 Creatinine 0.7 Estimated GFR (MDRD) 107 Glucose 85 Calcium 8.9 Total Bilirubin 0.6 AST 36 ALT 78 H Alkaline Phosphatase 56 Troponin I < 0.04 Total Protein 7.2 Albumin 4.1 Globulin 3.1 Albumin/Globulin Ratio 1.3 Lipase 27 PD MEDICAL DECISION MAKING - ED course ED course: 21-year-old woman presents after drinking oral contrast in the midst of a clear panic attack. There is no evidence of allergic reaction to the contrast. Her EKG is normal and she is treated with Ativan here. Feeling better after that and her lab abnormalities are improving spontaneously and her CAT scan of her belly was negative except for fatty liver. Departure - Departure Disposition: 01 Home, Self Care Clinical Impression: Chest pain at rest, Panic attack Condition: Good Record reviewed to determine appropriate education?: Yes Instructions: ED Panic Attack Comments: Call your doctor to arrange a follow-up appointment, make the next available appointment. In the interim, return anytime if worse or if new symptoms develop. Your blood pressure was elevated today on check into the emergency department. This does not mean that you have hypertension, it is a common phenomenon to come to the emergency department and have elevated blood pressure. I recommend that she see your primary care physician within the week to have it rechecked when you are feeling better.
[2016-11-26] MEDS ORDERED: LORazepam 2 MG/ML SYRINGE ONE (18:25)
[2016-11-26 18:36] LABS: BASOPHILS # (AUTO) 0.1 10^3/uL (0.0-0.1); BASOPHILS % (AUTO) 0.4 %; EOSINOPHILS # (AUTO) 0.2 10^3/uL (0.0-0.7); EOSINOPHILS % (AUTO) 1.4 %; HCT - HEMATOCRIT 42.9 % (37.0-47.0); HGB - HEMOGLOBIN 14.8 g/dL (12.0-16.0); LYMPHOCYTES # (AUTO) 4.2 10^3/uL (1.5-3.5); LYMPHOCYTES % (AUTO) 26.4 %; MEAN CORPUSCULAR HEMOGLOBIN 31.1 pg (27.0-31.0); MEAN CORPUSCULAR HGB CONC 34.4 g/dL (32.0-36.0); MEAN CORPUSCULAR VOLUME 90.4 fL (81.0-99.0); MEAN PLATELET VOLUME 7.8 fL (7.9-10.8); MONOCYTES # (AUTO) 1.4 10^3/uL (0.0-1.0); MONOCYTES % (AUTO) 8.6 %; NEUTROPHILS # (AUTO) 10.2 10^3/uL (1.5-6.6); NEUTROPHILS % (AUTO) 63.2 %; RED BLOOD COUNT 4.74 10^6/uL (4.20-5.40); RED CELL DISTRIBUTION WIDTH 12.1 % (12.0-15.0); UNCORRECTED WHITE BLOOD COUNT 16.1 x10^3/uL; WHITE BLOOD COUNT 16.1 x10^3/uL (4.8-10.8)
[2016-11-26 19:26] LABS: ALBUMIN/GLOBULIN RATIO 1.3 (1.0-2.2); BILIRUBIN,TOTAL 0.6 mg/dL (0.2-1.0); CALCIUM 8.9 mg/dL (8.5-10.3); CREATININE 0.7 mg/dL (0.4-1.0); POTASSIUM 3.5 mmol/L (3.5-5.0); TOTAL PROTEIN 7.2 g/dL (6.7-8.2)
[2016-11-26 19:40] VITALS: BP 161/89
== END 2016-11-26 19:53 | disposition home or self-care (01) ==
LOC: ED 17:57
DX: R07.9 Chest pain, unspecified (principal); F41.0 Panic disorder [episodic paroxysmal anxiety]; I10 Essential (primary) hypertension
CPT/HCPCS: 36415; 80053; 83690; 84484; 85025; 93005; 96374; 99283; 99284; J2060

== ENCOUNTER 2016-11-30 12:58 | Emergency (ER) | payer OTHER ==
[2016-11-30] MEDS ORDERED: KETOROLAC 60 MG/2 ML VIAL IVP STA (13:43)
[2016-11-30] MEDS ORDERED: SODIUM CHLORIDE 0.9% 1,000 ML IV ONE (13:43)
[2016-11-30] MEDS ORDERED: ONDANSETRON 4 MG/2 ML VIAL IVP STA (13:43)
[2016-11-30] MEDS ORDERED: ONDANSETRON 4 MG/2 ML VIAL ONE (13:51)
[2016-11-30] MEDS ORDERED: KETOROLAC 30 MG/ML VIAL ONE (13:51)
[2016-11-30 13:58] LABS: BASOPHILS % (AUTO) 0.4 %; EOSINOPHILS # (AUTO) 0.2 10^3/uL (0.0-0.7); EOSINOPHILS % (AUTO) 1.8 %; HCT - HEMATOCRIT 42.8 % (37.0-47.0); HGB - HEMOGLOBIN 14.8 g/dL (12.0-16.0); LYMPHOCYTES # (AUTO) 3.1 10^3/uL (1.5-3.5); LYMPHOCYTES % (AUTO) 28.7 %; MEAN CORPUSCULAR HEMOGLOBIN 31.1 pg (27.0-31.0); MEAN CORPUSCULAR HGB CONC 34.5 g/dL (32.0-36.0); MEAN PLATELET VOLUME 7.5 fL (7.9-10.8); MONOCYTES # (AUTO) 0.7 10^3/uL (0.0-1.0); MONOCYTES % (AUTO) 6.7 %; NEUTROPHILS # (AUTO) 6.8 10^3/uL (1.5-6.6); NEUTROPHILS % (AUTO) 62.4 %; NUCLEATED RED BLOOD CELLS AUTO 0.1 /100WBC; RED BLOOD COUNT 4.76 10^6/uL (4.20-5.40); RED CELL DISTRIBUTION WIDTH 12.1 % (12.0-15.0); UNCORRECTED WHITE BLOOD COUNT 10.9 x10^3/uL; WHITE BLOOD COUNT 10.9 x10^3/uL (4.8-10.8)
[2016-11-30 14:00] LABS: BILIRUBIN,URINE NEGATIVE (NEGATIVE)
[2016-11-30 14:01] LABS: UA CHARGE (STRIP ONLY) YES; UR CULTURE IF IND NOT INDICATED
[2016-11-30 14:02] LABS: HCG UR QUAL NEGATIVE
--- NOTE | 2016-11-30 14:14 | ED Physician Documentation ---
History of Present Illness - Stated complaint Stated Complaint: VOMITING WHITE FOAM - Chief complaint Chief Complaint: Abd Pain - History obtained from History obtained from: Patient - History of Present Illness Timing: Prior to arrival - Additonal information Additional information: Patient is a 21-year-old female who has a history of Awad liver, polycystic ovarian syndrome and heavy menses who presents with a complaint of lower abdominal pain, cramping and an episode of nausea vomiting. She denies any upper abdominal pain constipation, diarrhea or lower urinary symptoms. She thinks this may be ovarian pain or perhaps menstrual pain. She had the onset of symptoms this morning got nauseated, vomited in her work center here for evaluation. Review of systems: For pertinent positive and negatives in the review of systems please see the history of present illness, otherwise all other systems have been reviewed and are negative. Darrian disclaimer: Parts of this medical record were created using voice recognition technology. Because of the inherent limitations of this system, occasional same sounding word substitutions do occur and persist despite proofreading. Please read the document for context. 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 Psych: Anxiety - Past Surgical History Past Surgical History: Yes HEENT: Tonsil/Adenoidectomy - Present Medications Home Medications: Ambulatory Orders Medication Instructions Recorded Confirmed Etonogestrel/Ethinyl Estradiol 1 each VG TITR 03/23/16 11/30/16 [Nuvaring Vaginal Ring] Biotin 1 tab PO DAILY 09/22/16 11/30/16 Clonazepam 1 mg PO BID 09/22/16 11/30/16 Dicyclomine [Bentyl] 10 mg PO QID PRN #30 capsule 09/22/16 11/30/16 Nadolol 20 mg PO QPM 09/22/16 11/30/16 PARoxetine [Paxil] 40 mg PO DAILY 09/22/16 11/30/16 Dexamethasone [Decadron] 4 mg PO DAILY #5 tablet 11/17/16 11/30/16 Ondansetron Odt [Zofran] 4 mg TL Q6H PRN #15 tablet 11/17/16 11/30/16 tiZANidine [Zanaflex] 4 mg PO Q8H PRN 11/30/16 11/30/16 - Allergies Allergies/Adverse Reactions: Allergies Allergy/AdvReac Type Severity Reaction Status Date / Time No Known Drug Allergies Allergy Verified 11/30/16 13:57 - Social History Does the pt smoke?: No Smoking Status: Never smoker Does the pt drink ETOH?: No Does the pt have substance abuse?: No - Immunizations Immunizations are current?: Yes PD ED PE NORMAL - Vitals Vital signs reviewed: Yes - General General: Alert and oriented X 3, No acute distress, Well developed/nourished - HEENT HEENT: Atraumatic - Neck Neck: Supple, no meningeal sign - Cardiac Cardiac: RRR, No gallop - Respiratory Respiratory: No respiratory distress, Clear bilaterally - Abdomen Abdomen: Normal bowel sounds, Soft, Non tender, Non distended, No organomegaly - Derm Derm: Normal color, Warm and dry - Extremities Extremities: No deformity, No tenderness to palpate, Normal ROM s pain, No edema - Neuro Neuro: Alert and oriented X 3, No motor deficit - Psych Psych: Normal mood, Normal affect Results - Vitals Vitals: Vital Signs - 24 hr 11/30/16 13:21 Temperature 37.1 C Heart Rate 92 Respiratory 16 Rate Blood Pressure 147/88 H O2 Saturation 99 Oxygen O2 Source Room air - Labs Labs: Laboratory Tests 11/30/16 11/30/16 11/30/16 13:48 13:48 13:50 WBC 10.9 H RBC 4.76 Hgb 14.8 Hct 42.8 MCV 90.0 MCH 31.1 H MCHC 34.5 RDW 12.1 Plt Count 267 MPV 7.5 L Neut # 6.8 H Lymph # 3.1 [place] # 0.7 Eos # 0.2 Baso # 0.0 Absolute Nucleated RBC 0.01 Nucleated RBCs 0.1 Sodium 138 Potassium 3.8 Chloride 107 Carbon Dioxide 22 Anion Gap 9.0 BUN 12 Creatinine 0.7 Estimated GFR (MDRD) 107 Glucose 89 Calcium 9.6 Total Bilirubin 0.6 AST 27 ALT 64 H Alkaline Phosphatase 54 Total Protein 7.6 Albumin 4.3 Globulin 3.3 Albumin/Globulin Ratio 1.3 Lipase 32 Urine Color YELLOW Urine Clarity CLEAR Urine pH 6.0 Ur Specific [place] 1.020 Urine Protein NEGATIVE Urine Glucose (UA) NEGATIVE Urine Ketones NEGATIVE Urine Occult Blood NEGATIVE Urine Nitrite NEGATIVE Urine Bilirubin NEGATIVE Urine Urobilinogen 0.2 (NORMAL) Ur Leukocyte Esterase NEGATIVE Ur Microscopic Review NOT INDICATED Urine Culture Comments NOT INDICATED Urine HCG, Qual 11/30/16 13:50 WBC RBC Hgb Hct MCV MCH MCHC RDW Plt Count MPV Neut # Lymph # [place] # Eos # Baso # Absolute Nucleated RBC Nucleated RBCs Sodium Potassium Chloride Carbon Dioxide Anion Gap BUN Creatinine Estimated GFR (MDRD) Glucose Calcium Total Bilirubin AST ALT Alkaline Phosphatase Total Protein Albumin Globulin Albumin/Globulin Ratio Lipase Urine Color Urine Clarity Urine pH Ur Specific [place] 1.020 Urine Protein Urine Glucose (UA) Urine Ketones Urine Occult Blood Urine Nitrite Urine Bilirubin Urine Urobilinogen Ur Leukocyte Esterase Ur Microscopic Review Urine Culture Comments Urine HCG, Qual NEGATIVE PD MEDICAL DECISION MAKING - ED course Complexity details: reviewed old records, reviewed results, re-evaluated patient , d/w patient ED course: 21-year-old female with history of Awad fatty liver, PCO S, and painful menses on NuvaRing who presents with a complaint of lower abdominal pain and concurrent menses. On examination she looks well and has a soft nontender abdomen. Routine labs are checked and are unremarkable with the exception of mild elevation of 1 of her transaminases. Her urine is negative for infection she is not . She is given a small amount of fluid in nonsteroidal anti- inflammatories here and is continuing to do well. The nausea is an ongoing issue. She is currently trying to be adherent to a ketogenic diet for her Awad. Clinical impression: 1. Lower abdominal pain 2. Nausea Departure - Departure Disposition: 01 Home, Self Care Clinical Impression: Pelvic pain Condition: Good Instructions: ED Pelvic Pain [facility] Follow-Up: Anthony Emerson MD [Primary Care Provider] -
[2016-11-30 14:20] LABS: ALBUMIN/GLOBULIN RATIO 1.3 (1.0-2.2); BILIRUBIN,TOTAL 0.6 mg/dL (0.2-1.0); CALCIUM 9.6 mg/dL (8.5-10.3); CREATININE 0.7 mg/dL (0.4-1.0); POTASSIUM 3.8 mmol/L (3.5-5.0); TOTAL PROTEIN 7.6 g/dL (6.7-8.2)
[2016-11-30 15:32] VITALS: BP 138/78
== END 2016-11-30 15:30 | disposition home or self-care (01) ==
LOC: ED 12:58
DX: R10.2 Pelvic and perineal pain (principal); R11.2 Nausea with vomiting, unspecified; K75.81 Nonalcoholic steatohepatitis (NASH); E28.2 Polycystic ovarian syndrome
CPT/HCPCS: 36415; 80053; 81001; 81003; 81025; 83690; 85025; 87086; 96361; 96374; 96375; 99283; 99284

== ENCOUNTER 2016-12-04 19:58 | Outpatient (CLI) | payer OTHER ==
--- NOTE | 2016-12-05 10:06 | Ultrasound Report ---
PELVIC ULTRASOUND: 12/04/2016 CLINICAL INDICATION: Menorrhagia. TECHNIQUE: Transabdominal pelvic ultrasound performed for global evaluation. Transvaginal pelvic ult rasound performed for detailed evaluation. Real-time scanning performed and static images obtained. FINDINGS: The uterus is anteverted, measuring 6.7 x 4.2 x 2.9 cm. The endometrial echo complex az ures 4 mm. No focal myometrial lesion is present. The ovaries are normal, with the right measuring 2.8 x 2.4 x 2.0 cm and the left measuring 1.9 x 1.4 x 1.2 cm. No free fluid is present. IMPRESSION: NORMAL PELVIC ULTRASOUND. JOB #: [id number] EXT JOB #:[id number]
== END 2016-12-04 19:59 | disposition home or self-care (01) ==
LOC: DI 19:58
PROVIDERS: ATTEND Physician Assistant Medical
DX: N92.0 Excessive and frequent menstruation with regular cycle (principal)
CPT/HCPCS: 76830; 76856

== ENCOUNTER 2016-12-12 08:22 | Outpatient (CLI) | payer OTHER ==
--- NOTE | 2016-12-12 11:59 | Ultrasound Report ---
LEFT BREAST ULTRASOUND: 12/12/2016 CLINICAL INDICATION: Left nipple discharge, palpable abnormality. TECHNIQUE: Real-time scanning was performed with customer loyalty representative static images obtained. FINDINGS: Ultrasound of the region of palpable abnormality identified by the patient as well as the left periareolar breast was performed. Unremarkable parenchyma is seen. No discrete solid or cystic lesion is identified. No sonographically suspicious findings are appreciated. IMPRESSION: NEGATIVE EXAMINATION. RECOMMENDATION: Continued clinical followup. No sonographically suspicious findings are identified. BI-RADS category 1, negative. JOB #: [id number] EXT JOB #:[id number]
== END 2016-12-12 08:23 | disposition home or self-care (01) ==
LOC: DI 08:22
PROVIDERS: ATTEND Family Medicine
DX: N64.52 Nipple discharge (principal)
CPT/HCPCS: 76642

== ENCOUNTER 2016-12-21 14:51 | Outpatient (CLI) | payer OTHER | END 2016-12-21 14:52 | disposition home or self-care (01) | LOC: LAB.R 14:51 | PROVIDERS: ATTEND Physician Assistant Medical | DX: J02.9 Acute pharyngitis, unspecified (principal) | CPT/HCPCS: 87070 ==

== ENCOUNTER 2018-03-13 12:38 | Emergency (ER) | payer SELFPAY ==
[2018-03-13] MEDS ORDERED: METOPROLOL 5 MG/5 ML VIAL IVP STA (12:57)
[2018-03-13] MEDS ORDERED: ACETAMINOPHEN 325 MG TABLET PO STA (12:57)
[2018-03-13] MEDS ORDERED: SODIUM CHLORIDE 0.9% 1,000 ML IV ONE (12:57)
--- NOTE | 2018-03-13 13:00 | ED Physician Documentation ---
PD HPI FOCAL NEURO - Stated complaint Stated Complaint: RAPID HR - Chief complaint Chief Complaint: Neuro - History obtained from History obtained from: Patient - History of Present Illness Timing - onset: Today (She woke up this morning with a headache, that is not atypical for her, she has a lot of headaches. What bothered her was a sensation of rapid heart rate with mild dizziness and chest pressure. It started after taking 4 Excedrin which do have caffeine, but she takes Excedrin frequently in that dose and says she is never had a reaction like this before from that. There is no associated fevers. No possibility of . She noticed on her apple watch that her heart rates been as high as 142.) Review of Systems Ten Systems: 10 systems reviewed and negative Constitutional: denies: Fever, Chills Nose: denies: Rhinorrhea / runny nose, Congestion Throat: denies: Sore throat Cardiac: reports: Chest pain / pressure. denies: Palpitations Respiratory: reports: Dyspnea. 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 PCOS - Past Surgical History Past Surgical History: Yes HEENT: Tonsil/Adenoidectomy - Present Medications Home Medications: Ambulatory Orders Medication Instructions Recorded Confirmed clonazePAM [Clonazepam] 1 mg PO BID 09/22/16 11/30/16 Metoprolol Succinate 25 mg PO DAILY #30 tab.er.24h 03/13/18 - Allergies Allergies/Adverse Reactions: Allergies Allergy/AdvReac Type Severity Reaction Status Date / Time lisinopril AdvReac Mild Respiratory Verified 03/13/18 12:49 - Social History Does the pt smoke?: No Smoking Status: Never smoker Does the pt drink ETOH?: No Does the pt have substance abuse?: No - Immunizations Immunizations are current?: Yes PD ED PE NORMAL - Vitals Vital signs reviewed: Yes - General General: Alert and oriented X 3, No acute distress - HEENT HEENT: PERRL, EOMI - Neck Neck: Supple, no meningeal sign, No bony TTP - Cardiac Cardiac: RRR, No murmur - Respiratory Respiratory: No respiratory distress, Clear bilaterally - Abdomen Abdomen: Normal bowel sounds, Soft, Non tender - Extremities Extremities: No edema, No calf tenderness / cord - Neuro Neuro: Alert and oriented X 3, Normal speech Results - Vitals Vitals: Vital Signs - 24 hr 03/13/18 03/13/18 03/13/18 12:44 13:25 14:15 Temperature 36.5 C Heart Rate 108 H 78 79 Respiratory 15 16 15 Rate Blood Pressure 152/94 H 143/98 H 143/90 H O2 Saturation 100 99 99 Oxygen O2 Source Room air - EKG (time done) 1306 Rate: Rate (enter#) (82) Rhythm: NSR [place]: Normal Intervals: Normal [place] QRS: Normal Ischemia: Normal ST segments Computer interpretation: Agree with computer - Labs Labs: Laboratory Tests 03/13/18 03/13/18 03/13/18 13:15 13:15 13:15 WBC 13.2 H RBC 5.12 Hgb 15.3 Hct 44.9 MCV 87.7 MCH 29.8 MCHC 34.0 RDW 13.0 Plt Count 284 MPV 8.2 Neut # (Auto) 8.4 H Lymph # (Auto) 3.8 H [place] # (Auto) 0.9 Eos # (Auto) 0.1 Baso # (Auto) 0.1 Absolute Nucleated RBC 0.01 Nucleated RBC % 0.1 D-Dimer Sodium 136 Potassium 4.1 Chloride 106 Carbon Dioxide 22 Anion Gap 8.0 BUN 10 Creatinine 0.9 Estimated GFR (MDRD) 79 L Glucose 103 H Calcium 9.6 Total Bilirubin 0.9 AST 30 ALT 52 Alkaline Phosphatase 66 Troponin I < 0.04 Total Protein 7.9 Albumin 4.2 Globulin 3.7 Albumin/Globulin Ratio 1.1 Lipase 26 TSH Urine Color Urine Clarity Urine pH Ur Specific [place] Urine Protein Urine Glucose (UA) Urine Ketones Urine Occult Blood Urine Nitrite Urine Bilirubin Urine Urobilinogen Ur Leukocyte Esterase Ur Microscopic Review Urine Culture Comments Urine HCG, Qual Urine Opiates Screen Ur Oxycodone Screen Urine Methadone Screen Ur Propoxyphene Screen Ur Barbiturates Screen Ur Tricyclics Screen Ur Phencyclidine Scrn Ur Amphetamine Screen U Methamphetamines Scrn U Benzodiazepines Scrn Urine Cocaine Screen U Cannabinoids Screen 03/13/18 03/13/18 03/13/18 13:15 13:15 13:55 WBC RBC Hgb Hct MCV MCH MCHC RDW Plt Count MPV Neut # (Auto) Lymph # (Auto) [place] # (Auto) Eos # (Auto) Baso # (Auto) Absolute Nucleated RBC Nucleated RBC % D-Dimer 202.1 Sodium Potassium Chloride Carbon Dioxide Anion Gap BUN Creatinine Estimated GFR (MDRD) Glucose Calcium Total Bilirubin AST ALT Alkaline Phosphatase Troponin I Total Protein Albumin Globulin Albumin/Globulin Ratio Lipase TSH 1.33 Urine Color Urine Clarity Urine pH Ur Specific [place] Urine Protein Urine Glucose (UA) Urine Ketones Urine Occult Blood Urine Nitrite Urine Bilirubin Urine Urobilinogen Ur Leukocyte Esterase Ur Microscopic Review Urine Culture Comments Urine HCG, Qual Urine Opiates Screen NEGATIVE Ur Oxycodone Screen NEGATIVE Urine Methadone Screen NEGATIVE Ur Propoxyphene Screen NEGATIVE Ur Barbiturates Screen NEGATIVE Ur Tricyclics Screen NEGATIVE Ur Phencyclidine Scrn NEGATIVE Ur Amphetamine Screen NEGATIVE U Methamphetamines Scrn NEGATIVE U Benzodiazepines Scrn NEGATIVE Urine Cocaine Screen NEGATIVE U Cannabinoids Screen NEGATIVE 03/13/18 13:55 WBC RBC Hgb Hct MCV MCH MCHC RDW Plt Count MPV Neut # (Auto) Lymph # (Auto) [place] # (Auto) Eos # (Auto) Baso # (Auto) Absolute Nucleated RBC Nucleated RBC % D-Dimer Sodium Potassium Chloride Carbon Dioxide Anion Gap BUN Creatinine Estimated GFR (MDRD) Glucose Calcium Total Bilirubin AST ALT Alkaline Phosphatase Troponin I Total Protein Albumin Globulin Albumin/Globulin Ratio Lipase TSH Urine Color YELLOW Urine Clarity CLEAR Urine pH 7.5 Ur Specific [place] 1.020 Urine Protein NEGATIVE Urine Glucose (UA) NEGATIVE Urine Ketones NEGATIVE Urine Occult Blood NEGATIVE Urine Nitrite NEGATIVE Urine Bilirubin NEGATIVE Urine Urobilinogen 0.2 (NORMAL) Ur Leukocyte Esterase NEGATIVE Ur Microscopic Review NOT INDICATED Urine Culture Comments NOT INDICATED Urine HCG, Qual NEGATIVE Urine Opiates Screen Ur Oxycodone Screen Urine Methadone Screen Ur Propoxyphene Screen Ur Barbiturates Screen Ur Tricyclics Screen Ur Phencyclidine Scrn Ur Amphetamine Screen U Methamphetamines Scrn U Benzodiazepines Scrn Urine Cocaine Screen U Cannabinoids Screen PD MEDICAL DECISION MAKING - ED course ED course: 22-year-old woman with history of migraines presents with a slightly different headache than normal associated with symptomatic tachycardia. Her heart rate normalized after triage but before the EKG and before other specific treatments. She was driving so her headache was treated with Tylenol, metoprolol, and IV fluids with good effect. The differential diagnosis was broad and she was ruled out for PE, myocardial infarction, anemia, hyperthyroidism. Departure - Departure Disposition: 01 Home, Self Care Clinical Impression: Headache Qualifiers: Headache type: unspecified Headache chronicity pattern: acute headache Intractability: not intractable Qualified Code(s): R51 - Headache High blood pressure Qualifiers: Hypertension type: essential hypertension Qualified Code(s): I10 - Essential (primary) hypertension Condition: Good Record reviewed to determine appropriate education?: Yes Instructions: ED Cephalgia Unspecified Prescriptions: Metoprolol Succinate 25 mg PO DAILY #30 tab.er.24h Comments: As discussed, it seems to make sense to start you on a beta-aundrea like m etoprolol as it may decrease the frequency of your headaches as well as work on your blood pressure. Follow-up with your doctor within the next week or 2 to check your blood pressure and see how it is working. Return for new or worsening symptoms.
[2018-03-13 13:34] LABS: BASOPHILS # (AUTO) 0.1 10^3/uL (0.0-0.1); BASOPHILS % (AUTO) 0.5 %; EOSINOPHILS # (AUTO) 0.1 10^3/uL (0.0-0.7); EOSINOPHILS % (AUTO) 0.6 %; HGB - HEMOGLOBIN 15.3 g/dL (12.0-16.0); LYMPHOCYTES # (AUTO) 3.8 10^3/uL (1.5-3.5); LYMPHOCYTES % (AUTO) 28.9 %; MEAN CORPUSCULAR HEMOGLOBIN 29.8 pg (27.0-31.0); MEAN CORPUSCULAR VOLUME 87.7 fL (81.0-99.0); MEAN PLATELET VOLUME 8.2 fL (7.9-10.8); MONOCYTES # (AUTO) 0.9 10^3/uL (0.0-1.0); MONOCYTES % (AUTO) 6.9 %; NEUTROPHILS # (AUTO) 8.4 10^3/uL (1.5-6.6); NEUTROPHILS % (AUTO) 63.1 %; PLT - PLATELET COUNT 284 10^3/uL (130-450); RED BLOOD COUNT 5.12 10^6/uL (4.20-5.40); WHITE BLOOD COUNT 13.2 x10^3/uL (4.8-10.8)
[2018-03-13 13:51] LABS: ALBUMIN 4.2 g/dL (3.2-5.5); ALBUMIN/GLOBULIN RATIO 1.1 (1.0-2.2); BILIRUBIN,TOTAL 0.9 mg/dL (0.2-1.0); CALCIUM 9.6 mg/dL (8.5-10.3); CREATININE 0.9 mg/dL (0.4-1.0); TOTAL PROTEIN 7.9 g/dL (6.7-8.2)
[2018-03-13 14:02] LABS: MUDS CUTOFF CONCENTRATIONS CUTOFF CONC BELOW:
[2018-03-13 14:07] LABS: BILIRUBIN,URINE NEGATIVE (NEGATIVE); GLUCOSE, URINE (UA) NEGATIVE (NEGATIVE); KETONES,URINE (UA) NEGATIVE (NEGATIVE); LEUKOCYTE ESTERASE, URINE NEGATIVE (NEGATIVE); NITRITE,URINE NEGATIVE (NEGATIVE); OCCULT BLOOD,URINE NEGATIVE (NEGATIVE); PH,URINE 7.5 PH (5.0-7.5); PROTEIN,URINE NEGATIVE (NEGATIVE); UROBILINOGEN,URINE 0.2 (NORMAL) E.U./dL (NORMAL)
[2018-03-13 14:10] LABS: CLARITY,URINE CLEAR (CLEAR); HCG UR QUAL NEGATIVE
[2018-03-13 14:16] VITALS: BP 143/90
[2018-03-13 14:19] LABS: AMPHETAMINE SCREEN,URINE NEGATIVE (NEGATIVE); BENZODIAZEPINES SCREEN, URINE NEGATIVE (NEGATIVE); COCAINE SCREEN URINE NEGATIVE (NEGATIVE); METHADONE SCREEN, URINE NEGATIVE (NEGATIVE); METHAMPHETAMINES SCREEN, URINE NEGATIVE (NEGATIVE); OPIATE SCREEN, URINE NEGATIVE (NEGATIVE); OXYCODONE SCREEN, URINE NEGATIVE (NEGATIVE); PROPOXYPHENE SCREEN, URINE NEGATIVE (NEGATIVE); TRICYCLIC ANTIDEPRESSANT,URINE NEGATIVE (NEGATIVE)
== END 2018-03-13 14:40 | disposition home or self-care (01) ==
LOC: ED 12:38
DX: R51 Headache (principal); I10 Essential (primary) hypertension; K75.9 Inflammatory liver disease, unspecified
CPT/HCPCS: 36415; 80053; 80306; 81001; 81003; 81025; 83690; 84443; 84484; 85025; 85379; 87086; 93005; 96361; 96374; 99283

== ENCOUNTER 2018-04-21 09:36 | Outpatient (CLI) | payer OTHER ==
[2018-04-22 12:26] LABS: HIV AG/AB 4TH GEN NON-REACTIVE (NON-REACTIVE)
== END 2018-04-21 23:59 | disposition home or self-care (01) ==
LOC: LAB.WCP 09:36
PROVIDERS: ATTEND Family Medicine
DX: Z11.3 Encounter for screening for infections with a predominantly sexual mode of transmission (principal)
CPT/HCPCS: 36415; 81599; 86592; 87389